=== PATIENT | male | born 1955 | race Caucasian/White ===

== ENCOUNTER → 2022-06-04 | Day surgery (SDC) | payer MEDICARE ==
[~2022-06-04] VITALS: Ht 188 cm; Wt 124.8 kg
[~2022-06-04] MED LIST: CYCLOBENZAPRINE10 MG PO; DICLOFENAC SOD100 GM TOP; GABAPENTIN800 MG PO; MORPHINE SULFAT15 MG PO; NORVASC5 MG PO; PRADAXA150 MG PO; PRAVACHOL20 MG PO; QBRELIS1 MG/1 ML PO; REVATIO 20MG TA20 MG PO; VICODIN 10/3251 EACH PO; VITAMIN D310 MC3 PO; ZESTORETIC 20-1 EACH PO
[2022-06-04 13:44] LABS: INR 0.99 (0.9-1.2); PROTHROMBIN TIME 12.8 SECONDS (11.9-13.9); PTT 26.5 SECONDS (24.9-34.6)
== END | disposition home or self-care (01) ==
LOC: FAS 05-21 08:15
PROVIDERS: Student in an Organized Health Care Education/Training Program
DX: Z12.11 Encounter for screening for malignant neoplasm of colon (principal); K57.30 Diverticulosis of large intestine without perforation or abscess without bleeding; K64.8 Other hemorrhoids; I10 Essential (primary) hypertension; E78.00 Pure hypercholesterolemia, unspecified; F17.210 Nicotine dependence, cigarettes, uncomplicated; Z86.010 Personal history of colon polyps; Z88.6 Allergy status to analgesic agent; Z88.8 Allergy status to other drugs, medicaments and biological substances; Z79.01 Long term (current) use of anticoagulants; Z79.899 Other long term (current) drug therapy
CPT/HCPCS: 36415; 85610; 85730; J2250; J2704; J7120